=== PATIENT | female | born 1990 | race Caucasian/White ===

== ENCOUNTER 2021-10-11 07:38 | Observation (INO) | payer MEDICAID ==
[~2021-10-11] VITALS: Ht 154.9 cm; Wt 88.9 kg
== END 2021-10-11 10:45 | disposition home or self-care (01) ==
LOC: 8 EST LDRP 07:38
PROVIDERS: ADMIT Obstetrics & Gynecology; ATTEND Obstetrics & Gynecology
DX: Z34.93 Encounter for supervision of normal pregnancy, unspecified, third trimester (principal); Z3A.36 36 weeks gestation of pregnancy
CPT/HCPCS: 59025; 76815; 76818; G0378

== ENCOUNTER 2021-10-31 17:14 | Observation (INO) | payer MEDICAID ==
[~2021-10-31] VITALS: Ht 154.9 cm; Wt 93.4 kg
[2021-11-01] MEDS ORDERED: FERR325T6 PO (01:25)
[2021-11-01] MEDS ORDERED: CALCIUM (01:25)
[2021-11-01] MEDS ORDERED: PREN1TAB78 PO (01:25)
[2021-11-03] MEDS ORDERED: IBUP-2030 PO (08:38)
== END 2021-10-31 20:05 | disposition home or self-care (01) ==
LOC: 8 EST LDRP 17:14
PROVIDERS: ADMIT Obstetrics & Gynecology; ATTEND Obstetrics & Gynecology
DX: O46.93 Antepartum hemorrhage, unspecified, third trimester (principal); O62.9 Abnormality of forces of labor, unspecified; Z3A.38 38 weeks gestation of pregnancy
CPT/HCPCS: 59025; 76805; 76818; G0378; 99281